=== PATIENT | female | born 1995 | race Caucasian/White ===

== ENCOUNTER 2019-01-28 10:25 | Day surgery (SDC) | payer BC ==
[~2019-01-28] VITALS: Ht 162.6 cm; Wt 77.1 kg
[2019-01-28] MEDS ORDERED: GENTAMICIN 80 MG/ ISO-OSM 100 ML PREMIX IV ONE (11:30)
[2019-01-28] MEDS ORDERED: CEFAZOLIN SOD 1 GM/ ISO 50 ML PREMIX IV ONE (11:30)
[2019-01-28] MEDS ORDERED: LR 1,000 ML IV SCH (12:39)
[2019-01-28] MEDS ORDERED: HYDROmorphone 1 MG INJ. 1 MG/ML AMPUL IVP PRN (12:45)
[2019-01-28] MEDS ORDERED: MEPERIDINE HCL/PF 25 MG/ML DISP.SYRIN IVP PRN (12:45)
[2019-01-28] MEDS ORDERED: HYDROmorphone 2 MG/ML VIAL IVP PRN ×2 (12:45)
[2019-01-28] MEDS ORDERED: PROMETHAZINE INJ.Non-Formulary 25 MG/ML AMP IM PRN (13:15)
[2019-01-28] MEDS ORDERED: HYDROmorphone 2 MG TAB PO PRN (13:15)
[2019-01-28] MEDS ORDERED: ONDANSETRON HCL 4 MG/2 ML VIAL IVP PRN (13:15)
[2019-01-28] MEDS ORDERED: OXYCODONE/ACETAMINOPHEN 5-325 TABLET PO PRN (13:15)
[2019-01-28] MEDS ORDERED: HYDROmorphone 2 MG/ML VIAL ONE (13:34)
[2019-01-28] MEDS ORDERED: OXYCODONE/ACETAMINOPHEN 5-325 TABLET ONE (14:45)
[2019-01-28 15:57] VITALS: BP_SYST 102
== END 2019-01-28 18:00 | disposition home or self-care (01) ==
LOC: SDS 10:25 → SMU 10:26 → SDS 18:00
PROVIDERS: ATTEND Obstetrics & Gynecology
DX: N80.2 Endometriosis of fallopian tube (principal); N70.11 Chronic salpingitis; G44.229 Chronic tension-type headache, not intractable; M54.5 Low back pain; I37.0 Nonrheumatic pulmonary valve stenosis; E66.3 Overweight; Z79.899 Other long term (current) drug therapy; E66.9 Obesity, unspecified
CPT/HCPCS: 36415; 58661; 86886; 86900; 86901; 88305; C1727; J0690; J1170; J1580